=== PATIENT | male | born 1980 | race Caucasian/White ===

== ENCOUNTER 2023-06-30 12:06 | Outpatient (CLI) | payer OTHER, SELFPAY ==
--- NOTE | 2023-06-30 12:15 | CRLHL7_ITS ---
For Patients: As a result of the Century Cures Act, medical imaging exams and procedure reports are released immediately into your electronic medical record. You may view this report before your referring provider. If you have questions, please contact your health care provider. INDICATION: Patellofemoral syndrome. TECHNIQUE: Three views of the left knee. FINDINGS: Normal left knee. No fracture, dislocation, erosion, or effusion. No subluxation of the patella. The medial, lateral, and patellofemoral compartments are well preserved. IMPRESSION: Normal three-view left knee. Dictated by Agus Kahn MD @ 06/30/2023 1:12:34 PM (Electronically Signed)
== END 2023-06-30 12:07 | disposition home or self-care (01) ==
LOC: RAD 12:10
PROVIDERS: PCP Chiropractor; Visit Provider Chiropractor
DX: M22.2X2 Patellofemoral disorders, left knee (principal)
CPT/HCPCS: 73562